=== PATIENT | male | born 1965 | race Caucasian/White ===

== ENCOUNTER 2020-03-04 16:37 | Outpatient (CLI) | payer BC, SELFPAY ==
[2020-03-04 17:08] LABS: Basophils Absolute Auto 0.1 K/mm3 (0.0-0.1); Basophils Percent Auto 0.4 % (0.2-1.2); Eosinophils Absolute Auto 0.2 K/mm3 (0-0.3); Eosinophils Percent Auto 1.7 % (0-4.4); Hematocrit 49.8 % (42.0-52.0); Hemoglobin 17.3 g/dL (14.0-18.0); Immature Granulocyte Absolute 0.04 K/mm3 (0.00-0.031); Immature Granulocyte Percent A 0.3 % (0-0.5); Lymphocytes Absolute Auto 2.67 K/mm3 (0.9-3.2); Lymphocytes Percent Auto 22.2 % (18.3-44.2); Mean Corpuscular HGB Conc 34.7 g/dl (32-36); Mean Corpuscular Hemoglobin 32.3 pg (26-34); Mean Corpuscular Volume 93.1 fl (80-100); Mean Platelet Volume 8.7 fl (7.4-10.4); Monocytes Percent Auto 8.5 % (2.6-8.5); Neutrophils Percent Auto 66.9 % (45.5-73.1); Platelet Count Result 297 k/mm3 (150-375); Red Blood Count 5.35 M/mm3 (4.6-6.20); Red Cell Distribution Width 12.6 % (11.5-14.5)
[2020-03-04 17:20] LABS: Alanine Aminotransferase 34 U/L (4-50); Albumin Level 4.5 g/dL (3.5-5.1); Alkaline Phosphatase 76 U/L (38-126); Amylase 83 U/L (30-110); Anion Gap 7 mmol/L (8-16); Aspartate Amino Transferase 29 U/L (17-59); Bilirubin,Total 0.3 mg/dL (0.2-1.3); Blood Urea Nitrogen 16 mg/dL (9-20); Calcium 9.5 mg/dL (8.4-10.2); Carbon Dioxide 29 mmol/L (22-30); Chloride 109 mmol/L (98-107); Estimated Glomerular Filt Rate > 60; Glucose 96 mg/dL (75-110); Lipase 84 U/L (23-300); Potassium 4.2 mmol/L (3.4-5.0); Sodium 145 mmol/L (137-145)
== END 2020-03-04 16:38 | disposition home or self-care (01) ==
LOC: ANHLAB 16:40
PROVIDERS: PCP Family Medicine; Visit Provider Physician Assistant
DX: R10.9 Unspecified abdominal pain (principal)
CPT/HCPCS: 36415; 80053; 82150; 83690; 85025

== ENCOUNTER 2020-03-05 09:27 | Outpatient (CLI) | payer BC, SELFPAY ==
--- NOTE | ~2020-03-05 | CT_ITS ---
EXAMINATION: CT abdomen pelvis wo con DATE: 03/05/2020 09:48 INDICATION: Unspecified abdominal pain. TECHNIQUE: Computed tomography (CT) of the abdomen and pelvis was performed without intravenous contr ast. Automated exposure control and iterative reconstruction technique were employed. Exam dose: 140 4.95 mGy-cm total exam DLP. COMPARISON: None. FINDINGS: The lung bases are clear of consolidation. Normal heart size. No pericardial or pleural eff usion. Small sliding hiatal hernia. There are 4 or more scattered hypoattenuating lesions of the liver, the largest measuring up to 1.5 c m in the right hepatic lobe. The largest lesion has attenuation of fluid. These are statistically mos t likely a hepatic cyst, but some lesions are too small to definitively characterize on this limited noncontrast examination The gallbladder is present. No gallbladder wall thickening or pericholecystic fluid or inflammation. No bile duct or pancreatic duct dilatation. No pancreatic mass lesion or calcification. There are mul tiple calcified splenic granulomas. No splenomegaly. Normal morphology of the adrenal glands. No renal mass lesion or urinary tract calculus or hydroureteronephrosis is detected. The urinary blad dana is unremarkable. There is atherosclerotic calcification of the abdominal aorta and iliac arteries but no aneurysm. No intraperitoneal or retroperitoneal or pelvic mass lesion or adenopathy or ascites. Normal appendix. There are diverticula of the sigmoid and descending colon; no CT evidence of diverticulitis. No bowel obstruction, bowel wall thickening, pneumatosis or intraperitoneal free air. Small fat-containing umbilical hernia. No suspicious osteolytic or osteoblastic lesions are detected. IMPRESSION: Multiple 1.5 cm and smaller hepatic hypoattenuating lesions, possibly cysts. Some howeve r too small to definitively characterize Diverticulosis of the colon; no CT evidence of diverticulitis Reviewed, dictated and finalized at [facility]. Reviewed, dictated and finalized at [facility]. IMPRESSION: Multiple 1.5 cm and smaller hepatic hypoattenuating lesions, possi yamilet cysts. Some however too small to definitively characterize Diverticulosis of the colon; no CT evidence of diverticulitis
== END 2020-03-05 09:28 | disposition home or self-care (01) ==
PROVIDERS: PCP Family Medicine; Visit Provider Physician Assistant
DX: R10.9 Unspecified abdominal pain (principal); R35.0 Frequency of micturition; R39.15 Urgency of urination; K57.30 Diverticulosis of large intestine without perforation or abscess without bleeding
CPT/HCPCS: 74176

== ENCOUNTER 2021-01-17 15:09 | Emergency (ER) | payer BC, SELFPAY ==
--- NOTE | ~2021-01-17 | XR_ITS ---
EXAMINATION: XR chest 2V DATE: 01/17/2021 15:48 INDICATION: Gastroesophageal reflux disease, hypertension TECHNIQUE: PA and lateral views of the chest are obtained. COMPARISON: 03/16/2017 FINDINGS: The lungs are free of acute opacities. There is no pleural effusion or pneumothorax. The ca rdiomediastinal silhouette is normal. There is mild thoracic spondylosis. IMPRESSION: 1. No acute cardiopulmonary abnormality. Reviewed, dictated and finalized at [facility].
[2021-01-17 15:21] VITALS: BP 151/87; PULSE 67; RESP 18; TEMP 36.6; O2SAT 93
--- NOTE | 2021-01-17 15:23 | ECG_ITS ---
Measurements Intervals [place] Rate: 70 P: 66 SD: 165 QRS: 72 QRSD: 105 T: 59 QT: 389 QTc: 421 Interpretive Statements SINUS RHYTHM INCOMPLETE RIGHT BUNDLE BRANCH BLOCK DELAYED PRECORDIAL R/S TRANSITION BORDERLINE ECG Electronically Signed On 01-17-2021 15:34:22 CDT by Joseph Berrios D.O.
[2021-01-17 15:48] LABS: Basophils Absolute Auto 0.1 K/mm3 (0.0-0.1); Basophils Percent Auto 0.6 % (0.2-1.2); Eosinophils Absolute Auto 0.2 K/mm3 (0-0.3); Eosinophils Percent Auto 2.4 % (0-4.4); Hematocrit 48.3 % (42.0-52.0); Hemoglobin 16.1 g/dL (14.0-18.0); Immature Granulocyte Absolute 0.04 K/mm3 (0.00-0.031); Immature Granulocyte Percent A 0.5 % (0-0.5); Lymphocytes Absolute Auto 2.57 K/mm3 (0.9-3.2); Lymphocytes Percent Auto 32.9 % (18.3-44.2); Mean Corpuscular HGB Conc 33.3 g/dl (32-36); Mean Corpuscular Hemoglobin 30.6 pg (26-34); Mean Corpuscular Volume 91.8 fl (80-100); Monocytes Absolute Auto 0.6 K/mm3 (0.1-0.6); Monocytes Percent Auto 7.3 % (2.6-8.5); Neutrophils Absolute Auto 4.4 K/mm3 (1.3-6.7); Neutrophils Percent Auto 56.3 % (45.5-73.1); Platelet Count Result 275 k/mm3 (150-375); Red Blood Count 5.26 M/mm3 (4.6-6.20); Red Cell Distribution Width 12.4 % (11.5-14.5); White Blood Count 7.8 K/mm3 (4.5-10.0)
[2021-01-17 15:56] LABS: INR 0.9; Prothrombin Time 11.8 Seconds (11.1-14.7)
[2021-01-17 15:57] LABS: Partial Thromboplastin Time 26.4 SECONDS (22.3-36.8)
[2021-01-17 16:16] LABS: Anion Gap 9 mmol/L (8-16); Blood Urea Nitrogen 18 mg/dL (9-20); Calcium 9.8 mg/dL (8.4-10.2); Carbon Dioxide 27 mmol/L (22-30); Chloride 107 mmol/L (98-107); Estimated CRCL calculation 75 ml/min; Estimated Glomerular Filt Rate 57; Glucose 116 mg/dL (65-110); Sodium 143 mmol/L (137-145)
[2021-01-17 16:27] LABS: Troponin I < 0.012 ng/mL (0.000-0.034)
--- NOTE | 2021-01-17 17:21 | ED.GENADULT ---
HPI - General Adult General Chief complaint: Recheck/Abnormal Lab/Rx Stated complaint: high blood pressure, headache Time Seen by Provider: 01/17/21 16:59 Source: patient Mode of arrival: ambulatory Limitations: no limitations History of Present Illness HPI narrative: 55-year-old with a history of high blood pressure but not on any medication, triglyceridemia here with complaints of bilateral frontal headache and bilateral elbow pain for past few days. 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 He denies direct trauma . No history of fever or chills. Denies any visual problems. He states he called his PMD recommended him to go to the ER. He denies any chest pain or shortness of breath. Onset (ago): week(s) (1) Location: head Radiation: non-radiation Severity scale (1-10): 5 Quality: aching Pain Consistency: constant Relieving factors: none Exacerbating factors: none Related Data Allergies Allergy/AdvReac Type Severity Reaction Status Date / Time No Known Allergies Allergy Unverified 06/07/20 13:00 Review of Systems Review of Systems: All systems reviewed & are unremarkable except as noted in HPI and below Constitutional: Constitutional: Reports no additional constitutional complaints Eyes: Eyes: Reports no additional eye complaints ENT: Reports system reviewed and no additional complaints, except as documented Cardiovascular: Cardiovascular: Reports no additional cardiovascular complaints Respiratory: Respiratory: Reports no additional respiratory complaints Gastrointestinal: Gastrointestinal: Reports no additional gastrointestinal complaints Musculoskeletal: Musculoskeletal: Reports no additional musculoskeletal complaints Integumentary/Breasts: Skin/Breast: Reports system reviewed and no additional complaints, except as docu Neurologic: Reports system reviewed and no additional complaints, except as documented [facility] Family History Family History Mother Hypertension Family history of elevated blood lipids Family history of diabetes mellitus in first degree relative Social History Social History (Updated 06/07/20 @ 13:03 by Kathy Araujo) Smoking packs per day: 0.5 Smoking cigarettes per day: 10.0 Years smoked: 40 Smoking pack-years: 20.00 Smoking status: Current every day smoker Tobacco type: cigarettes Second hand tobacco smoke exposure: Yes Alcohol intake: current Drinks per week: 10 Substance use: never Substance use type: does not use Gender identity (if verbalized by the patient): Male Sexual Orientation (if Verbalized by the Patient): Straight or Heterosexual Exam Narrative: GENERAL: Well-appearing, well-nourished, and in no acute distress. HEAD: Normocephalic, atraumatic. EYES: PERRLA and EOMI.. NECK: Supple. CHEST: Clear to auscultation. No respiratory distress. HEART: Regular rate and rhythm. No murmur heard. Normal peripheral pulses. ABDOMEN: Soft, nontender, nondistended, normal active bowel sounds. EXTREMITIES: Normal range of motion. No edema. Examination of both elbows shows no joint effusion normal range of motion. The skin around the joint appears to be normal SKIN: Warm, dry, no rash. NEURO: No focal deficits. Alert and oriented x3. PSYCH: Normal mood and affect. Course Course Emergency Course: Inform patient about his lab work, EKG findings. His headaches most likely could be from high blood pressure. We will start him on lisinopril. Advised him to follow-up with Dr. Luis Lockhart in the next week or so. Vital Signs Vital signs: Vital Signs Temperature 36.6 C 01/17/21 15:21 Pulse Rate 67 01/17/21 15:21 Respiratory Rate 18 01/17/21 15:21 Blood Pressure 151/87 H 01/17/21 15:21 Pulse Oximetry 93 01/17/21 15:21 Temperature 36.6 C 01/17/21 15:21 Pulse Rate 67 01/17/21 15:21 Respiratory Rate 18 01/17/21 15:21 Blood Pressure
[2021-01-17 17:30] VITALS: BP 151/92; PULSE 66; RESP 16; O2SAT 97
== END 2021-01-17 17:30 | disposition home or self-care (01) ==
PROVIDERS: Emergency Medicine; Emergency Provider Family Medicine; PCP Family Medicine
DX: I10 Essential (primary) hypertension (principal); F17.210 Nicotine dependence, cigarettes, uncomplicated; I45.10 Unspecified right bundle-branch block
CPT/HCPCS: 36415; 71046; 80048; 84484; 85025; 85610; 85730; 93005; 99284

== ENCOUNTER 2021-02-02 16:47 | Outpatient (CLI) | payer BC, SELFPAY ==
--- NOTE | ~2021-02-02 | CT_ITS ---
EXAMINATION: CT lung screening DATE: 02/02/2021 17:12 INDICATION: Personal history of nicotine dependence, 46 pack year history TECHNIQUE: Computed tomography (CT) of the chest was performed without intravenous contrast. The dose -length product (DLP) was 322.44 mGy-cm. Automated exposure control and iterative reconstruction tech [employer] were employed. COMPARISON: None FINDINGS: There is mild emphysema. A 3 mm subpleural nodule is present in the right upper lobe on willy ge 53. There is a 4 mm nodule of the left upper lobe on image 61. The lungs are free of focal airspac e opacities. There is no pleural effusion or pneumothorax. No pathologically enlarged thoracic lymph nodes are identified. The heart size is normal. There is mild thoracic spondylosis. There is a 1.4 cm cyst of the right hepatic lobe. IMPRESSION: 1. Lung-RADS category 2: Benign appearance or behavior. Continue annual screening with noncontrast lo w-dose chest CT in 12 months. Reviewed, dictated and finalized at [facility]. IMPRESSION: 1. Lung-RADS category 2: Benign appearance or behavior. Continue annual screeni ng with noncontrast low-dose chest CT in 12 months.
== END 2021-02-02 16:48 | disposition home or self-care (01) ==
LOC: ANHIMG 16:51
PROVIDERS: PCP Family Medicine; Visit Provider Nurse Practitioner Family
DX: Z12.2 Encounter for screening for malignant neoplasm of respiratory organs (principal); F17.210 Nicotine dependence, cigarettes, uncomplicated
CPT/HCPCS: 71271

== ENCOUNTER 2023-01-19 16:15 | Outpatient (CLI) | payer BC, SELFPAY ==
--- NOTE | ~2023-01-19 | CT_ITS ---
EXAMINATION: CT lung screening DATE: 01/19/2023 16:37 INDICATION: Personal history of nicotine dependence, current smoker with 47 pack year history TECHNIQUE: Computed tomography (CT) of the chest was performed without intravenous contrast. The dose -length product (DLP) was 281.41 mGy-cm. Automated exposure control and iterative reconstruction tech [employer] were employed. COMPARISON: 02/02/2021 FINDINGS: There is mild emphysema. A stable subpleural nodule is seen in the right lower lobe on imag e 61. There is a stable 4 mm nodule of the left upper lobe on image 70. No new pulmonary nodules are identified. The lungs are free of acute opacities. No pleural effusion or pneumothorax. No pathologic ally enlarged thoracic lymph nodes are identified. The heart size is normal. There is a 1.4 cm cyst o f the right hepatic lobe. There is mild thoracic spondylosis. IMPRESSION: 1. Lung-RADS category 2: Benign appearance or behavior. Continue annual screening with noncontrast lo w-dose chest CT in 12 months. Reviewed, dictated and finalized at [facility]. IMPRESSION: 1. Lung-RADS category 2: Benign appearance or behavior. Continue annual screeni ng with noncontrast low-dose chest CT in 12 months.
== END 2023-01-19 16:16 | disposition home or self-care (01) ==
PROVIDERS: PCP Family Medicine; Visit Provider Physician Assistant
DX: Z12.2 Encounter for screening for malignant neoplasm of respiratory organs (principal); F17.210 Nicotine dependence, cigarettes, uncomplicated
CPT/HCPCS: 71271

== ENCOUNTER 2023-03-02 01:34 | Day surgery (SDC) | payer BC, SELFPAY ==
[2023-02-21 08:28] VITALS: BMI 32.0
--- NOTE | 2023-03-01 16:37 | PM.HPGS ---
History of Present Illness History of Present Illness Consent: Risks, benefits, and alternatives have been discussed and questions answered. Patient agrees to proceed with procedure. Chief complaint: Personal hx of colonic polyps Narrative: Eldon Arzola is a 57 year old male Referred for colon cancer screening. His last colonoscopy was 5 years ago Review of Systems Review of Systems: All systems reviewed & are unremarkable except as noted in HPI and below PMFSH Past Medical History Medical History HLD (hyperlipidemia) Family History Family History Mother Hypertension Family history of elevated blood lipids Family history of diabetes mellitus in first degree relative Social History Social History Smoking packs per day: 1 Smoking cigarettes per day: 20.0 Years smoked: 40 Smoking pack-years: 40.00 Smoking status: Current every day smoker Tobacco type: cigarettes Second hand tobacco smoke exposure: Yes Alcohol intake: current Drinks per week: 2 Substance use: never Substance use type: does not use Living arrangements: with family Occupation/Education: occupation Gender identity (if verbalized by the patient): Male Sexual Orientation (if Verbalized by the Patient): Straight or Heterosexual Spiritual care concerns: No Meds Home Medications and Allergies Home Medications Medication Instructions Recorded Confirmed Type famotidine 40 mg tablet 40 mg PO DAILY #90 tabs 07/13/22 03/02/23 Rx amlodipine 5 mg tablet 5 mg PO DAILY #90 tabs 01/26/23 03/02/23 Rx valsartan 40 mg tablet See Rx Instructions .Route 02/26/23 03/02/23 Rx .COMPLEX #90 tabs Allergies Allergy/AdvReac Type Severity Reaction Status Date / Time atorvastatin AdvReac Mild Muscle Pain Verified 03/02/23 07:12 Exam Resp: Auscultation: clear to auscultation bilaterally Cardio: Rate: regular rate Rhythm: regular rhythm GI: GI Palp: Yes Soft to palpation and No Tenderness to palpation present (GI) Assessment and Plan Assessment and plan (1) Colon cancer screening: Code(s): Z12.11 - Encounter for screening for malignant neoplasm of colon Status: Acute Assessment and Plan: Colonoscopy with possible biopsy or polypectomy or cautery or injection of substances.
[2023-03-02 07:13] VITALS: BP 138/76; PULSE 75; RESP 20; TEMP 36.3; O2SAT 97
[2023-03-02] MEDS: LACTATED RINGERS 1,000 ML 150 ML IV CONT (07:15)
--- NOTE | 2023-03-02 07:58 | P.PNAN_ITS ---
Anes - Initial Pre Proc Eval Procedure: Operation Date: 03/02/23 08:30 Proposed Procedures p Colonoscopy - Wily Carroll MD Date/Time: 03/02/23 07:58 Surgeon: Wily Carroll MD Pre Op Diagnosis: Personal hx of colonic polyps Patient Data Age: 57 Gender: M Height: 1.83 m Weight: 104 kg Last Vital Signs Temp 97.4 F L 03/02/23 07:13 Pulse 75 03/02/23 07:13 Resp 20 03/02/23 07:13 BP 138/76 03/02/23 07:13 Pulse Ox 97 03/02/23 07:13 O2 Del Method Room Air 03/02/23 07:13 Allergies Allergy/AdvReac Type Severity Reaction Status Date / Time atorvastatin AdvReac Mild Muscle Pain Verified 03/02/23 07:12 Home Medications Medication Instructions Recorded Confirmed Type famotidine 40 mg tablet 40 mg PO DAILY #90 tabs 07/13/22 03/02/23 Rx amlodipine 5 mg tablet 5 mg PO DAILY #90 tabs 01/26/23 03/02/23 Rx valsartan 40 mg tablet See Rx Instructions .Route 02/26/23 03/02/23 Rx .COMPLEX #90 tabs Patient hx anesthesia problems: none Family hx anesthesia problems: none Results Review: All pre-operative results and documents have been reviewed as part of the pre- operative evaluation. [facility] Past Medical History Medical History HLD (hyperlipidemia) Family History Family History Mother Hypertension Family history of elevated blood lipids Family history of diabetes mellitus in first degree relative Social History Social History Smoking packs per day: 1 Smoking cigarettes per day: 20.0 Years smoked: 40 Smoking pack-years: 40.00 Smoking status: Current every day smoker Tobacco type: cigarettes Second hand tobacco smoke exposure: Yes Alcohol intake: current Drinks per week: 2 Substance use: never Substance use type: does not use Living arrangements: with family Occupation/Education: occupation Gender identity (if verbalized by the patient): Male Sexual Orientation (if Verbalized by the Patient): Straight or Heterosexual Spiritual care concerns: No Anes - Eval Final PreProcedure Day of Procedure 03/02/23 07:58 Patient weight: obese Heart: regular rate and rhythm Lungs: clear to auscultation Airway: Mallampati scale class II Neurological: alert and oriented Last oral intake: >/= 8 hours ASA classification: III Emergent: no Anesthetic plan: proceed Anesthesia type and monitoring: general GIVS and standard monitoring Results Review: All pre-operative results and documents have been reviewed as part of the pre- operative evaluation. Informed Consent: The patient's anesthetic plan and its attendant risks and benefits were discussed with the patient/family/POA. Questions were solicited and answers provided to the satisfaction of the patient/family/POA.
[2023-03-02 08:45] VITALS: BP 117/76; PULSE 61; RESP 18; O2SAT 99
[2023-03-02 08:55] VITALS: BP 128/81; PULSE 61; RESP 20; O2SAT 97
[2023-03-02 09:05] VITALS: BP 120/78; PULSE 65; RESP 18; O2SAT 97
== END 2023-03-02 09:13 | disposition home or self-care (01) ==
PROVIDERS: PCP Family Medicine; Visit Provider Internal Medicine Gastroenterology
PROC: 0DJD8ZZ Inspection of Lower Intestinal Tract, Via Natural or Artificial Opening Endoscopic (ICD-10-PCS; CPT 45378; principal; 2023-03-02 08:30)
DX: Z12.11 Encounter for screening for malignant neoplasm of colon (principal); K57.30 Diverticulosis of large intestine without perforation or abscess without bleeding; D12.3 Benign neoplasm of transverse colon; D12.5 Benign neoplasm of sigmoid colon; K63.5 Polyp of colon; E78.5 Hyperlipidemia, unspecified; F17.210 Nicotine dependence, cigarettes, uncomplicated; E66.9 Obesity, unspecified; Z68.31 Body mass index [BMI] 31.0-31.9, adult
CPT/HCPCS: 45380; 88305; J2704; J7120

== ENCOUNTER 2023-05-08 13:38 | Emergency (ER) | payer BC, SELFPAY ==
[2023-05-08 13:53] VITALS: BP 147/79; PULSE 67; RESP 20; TEMP 37.6; O2SAT 98
[2023-05-08 14:02] VITALS: BP 147/79; PULSE 67; RESP 20; TEMP 37.6; O2SAT 98
--- NOTE | 2023-05-08 14:59 | ED.DENTAL ---
HPI - Dental/Oral General Chief complaint: Dental/Oral Stated complaint: Toothache Time Seen by Provider: 05/08/23 14:59 Source: patient, RN notes reviewed and old records reviewed Mode of arrival: ambulatory Limitations: no limitations History of Present Illness HPI Narrative: 57-year-old male who presents to [facility] with complaints of dental pain to left lower molar which started yesterday with increased pain today and associated left jaw swelling. #20 tooth with obvious caries and redness and swelling of gum noted, with swelling to left side of face. Patient has no difficulty with swallowing or with his breathing. Patient has numerous missing teeth and caries.Patient is daily tobacco user of 1ppd of cigarettes. MD Complaint: tooth pain Location: Tooth # (20) Onset (ago): day(s) (day 2 of symptoms) Severity scale (1-10): 6 Treatment prior to arrival: oral analgesic (Ibuprofen) Related Data Home Medications Medication Instructions Recorded Confirmed valsartan 40 mg tablet 40 mg PO DAILY 05/08/23 05/08/23 Allergies Allergy/AdvReac Type Severity Reaction Status Date / Time atorvastatin AdvReac Mild Muscle Pain Verified 05/08/23 13:56 Review of Systems Review of Systems: CONSTITUTIONAL: Denies fever, chills, or sweats. ENT: Denies rhinorrhea, congestion, sore throat, or otalgia. Reports dental pain #20 tooth with left facial swelling. CARDIOVASCULAR: Denies chest pain, palpitations, or edema. RESPIRATORY: Denies cough or dyspnea. SKIN: Denies rash or itching. MUSCULOSKELETAL: Denies myalgia. NEUROLOGIC: Denies headache All systems reviewed & are unremarkable except as noted in HPI and below [facility] Past Medical History Medical History (Updated 05/10/23 @ 15:17 by Laina Negrete NP) Colon polyps Fracture of right ankle GERD (gastroesophageal reflux disease) HLD (hyperlipidemia) Hypertension Pyelonephritis of right kidney Family History Family History Mother Hypertension Family history of elevated blood lipids Family history of diabetes mellitus in first degree relative Social History Social History Smoking packs per day: 1 Smoking cigarettes per day: 20.0 Years smoked: 40 Smoking pack-years: 40.00 Smoking status: Current every day smoker Tobacco type: cigarettes Second hand tobacco smoke exposure: Yes Alcohol intake: current Drinks per week: 2 Substance use: never Substance use type: does not use Living arrangements: with family Occupation/Education: occupation Gender identity (if verbalized by the patient): Male Sexual Orientation (if Verbalized by the Patient): Straight or Heterosexual Spiritual care concerns: No Comments At time of signature, agree with nursing past medical, surgical, social and family history. There is no relevant family history pertinent to the presenting complaint Exam Narrative: GENERAL: Well-appearing, well-nourished, and in no acute distress. HEAD: Normocephalic, atraumatic. EYES: PERRLA and EOMI. ENT: Nares clear, no rhinorrhea or epistaxis. Mucous membranes moist. Missing teeth, broken teeth, caries, redness of gum and swelling around#20 tooth with left sided facial swelling, no trismus or Jose angina NECK: Supple. no lymphadenopathy CHEST: Clear to auscultation. No respiratory distress.SAO2 98% on room air HEART: Regular rate and rhythm. No murmur heard. Normal peripheral pulses. SKIN: Warm, dry, no rash. NEURO: No focal deficits. Alert and oriented x3. Course Course Emergency Course: Patient is aware of diagnosis, understands and agrees to treatment plan. Anticipatory guidance given. Patient agrees to follow-up as directed and is aware of reasons to seek care at the emergency department. Portions of this record may have been created with voice recognition software Level of Care: [facility] Care Visit Vital
== END 2023-05-08 15:12 | disposition home or self-care (01) ==
PROVIDERS: Emergency Provider Registered Nurse; PCP Family Medicine
DX: K04.7 Periapical abscess without sinus (principal); E78.5 Hyperlipidemia, unspecified; I10 Essential (primary) hypertension; F17.210 Nicotine dependence, cigarettes, uncomplicated
CPT/HCPCS: 99213; G0463

== ENCOUNTER 2024-01-21 08:10 | Outpatient (CLI) | payer BC, SELFPAY ==
--- NOTE | ~2024-01-21 | CT_ITS ---
EXAMINATION:CT lung screening DATE: 01/21/2024 08:28 INDICATION: Nicotine dependence, cigarettes, and comminuted. Current smoker with 48 pack year history . TECHNIQUE: Computed tomography (CT) of the chest was performed without intravenous contrast. Automate d exposure control and iterative reconstruction technique were employed. The dose-length product (DLP ) was 257.68 mGy-cm. COMPARISON: Chest CT 01/19/2023 FINDINGS: There is mild emphysema. There is a 3 mm nodule in right lower lobe. There is a 3 mm nodule left upper lobe. Calcified right hilar and mediastinal lymph nodes are consistent with old granuloma tous disease. No pleural effusion. The heart size is normal. No pericardial effusion. There is a 17 m m cyst in the liver. There is mild thoracic spondylosis. IMPRESSION: 1. Lung-RADS category 2: Benign appearance or behavior. Continue annual screening with noncontrast lo w-dose chest CT in 12 months. Reviewed, dictated and finalized at location [facility]. IMPRESSION: 1. Lung-RADS category 2: Benign appearance or behavior. Continue annual screeni ng with noncontrast low-dose chest CT in 12 months.
== END 2024-01-21 08:11 | disposition home or self-care (01) ==
PROVIDERS: PCP Family Medicine; Visit Provider Physician Assistant
DX: Z12.2 Encounter for screening for malignant neoplasm of respiratory organs (principal); F17.210 Nicotine dependence, cigarettes, uncomplicated
CPT/HCPCS: 71271